=== PATIENT | male | born 1995 | race African-American/Black ===

== ENCOUNTER 2017-10-02 22:17 | Emergency (ER) | payer BC ==
[~2017-10-02] VITALS: Ht 182.9 cm; Wt 98.7 kg
[2017-10-02 23:21] LABS: BASOPHIL (%) 0.2 % (0-1); EOSINOPHIL (%) 0.1 % (0-5); HEMATOCRIT 49.1 % (38.0-50.0); HEMOGLOBIN 17.5 G/DL (12.5-16.6); IMMATURE GRANULOCYTE (%) 0.4 % (0.0-0.7); LYMPHOCYTE (%) 8.8 % (15-42); LYMPHOCYTE COUNT 1.2 K/uL (1.0-2.8); MCH 30.2 PG (29.0-34.0); MCHC 35.6 G/DL (30.0-36.0); MCV 84.8 FL (86-99); MONOCYTE (%) 8.9 % (3-12); MONOCYTE COUNT 1.2 K/uL (0-0.8); NEUTROPHIL (%) 81.6 % (45-76); NEUTROPHIL COUNT 10.7 K/uL (1.8-6.4); PLATELET COUNT 163 K/uL (156-360); RBC DIS.WIDTH-CV 12.2 % (11.8-14.6); RBC DIS.WIDTH-SD 37.4 % (39-53); RED BLOOD COUNT 5.79 M/uL (4.00-5.50); WHITE BLOOD COUNT 13.1 K/uL (4.1-10.2)
[2017-10-02 23:37] LABS: ALBUMIN 4.5 g/dL (3.2-4.8); CHLORIDE 102 mEq/L (99-109); POTASSIUM 3.9 mEq/L (3.7-5.4); SODIUM 137 mEq/L (136-147)
[2017-10-02 23:39] LABS: GLUCOSE 103 mg/dL (70-99)
[2017-10-02 23:40] LABS: TOTAL PROTEIN 8.3 g/dL (6.4-8.3)
[2017-10-02 23:41] LABS: TOTAL BILIRUBIN 1.1 mg/dL (0.0-1.0)
[2017-10-02 23:43] LABS: ALKALINE PHOSPHATASE 72 IU/L (3-129); CREATININE 1.2 mg/dL (0.6-1.3)
[2017-10-02 23:44] LABS: UREA NITROGEN (BUN) 9 mg/dL (9-23)
[2017-10-02 23:45] LABS: AST (GOT) 10 IU/L (2-34)
[2017-10-02 23:46] LABS: ALT (GPT) 10 IU/L (3-49)
[2017-10-02 23:51] LABS: GFR ESTIMATE (CALCULATED) > 59 mL/min/ (58.99-99999)
[2017-10-03 01:25] LABS: APPEARANCE CLEAR ((CLEAR)); BILIRUBIN NEGATIVE; BLOOD NEGATIVE; COLOR YELLOW ((YELLOW)); GLUCOSE (STRIP) NEGATIVE; KETONES 20; LEUKOCYTES NEGATIVE; NITRITE NEGATIVE; PROTEIN (STRIP) 30; SPECIFIC GRAVITY 1.029 (1.000-1.030); UCUL ADDED? NO
[2017-10-03] MEDS ORDERED: AMOXICILLIN500 MG PO (02:55)
[2017-10-03] MEDS ORDERED: TYLENOL WITH C1 EACH PO (02:56)
[2017-10-03 02:59] VITALS: BP 128/72
== END 2017-10-03 03:14 | disposition home or self-care (01) ==
LOC: EME 22:17
PROVIDERS: Emergency Medicine
DX: J03.90 Acute tonsillitis, unspecified (principal); M54.9 Dorsalgia, unspecified; R22.1 Localized swelling, mass and lump, neck; F17.200 Nicotine dependence, unspecified, uncomplicated
CPT/HCPCS: 70491; 80053; 81003; 85025; 87077; 87081; 87651 90; J0295; J1100; J1885; J7030; J7050